=== PATIENT | female | born 1955 | race Caucasian/White ===

== ENCOUNTER 2019-12-21 17:38 | Inpatient (IN) | payer MEDICAID ==
[~2019-12-21] VITALS: Ht 157.5 cm; Wt 67.8 kg
[2019-12-21] MEDS ORDERED: GABA-531 PO (17:51)
[2019-12-21] MEDS ORDERED: TRAZ150 PO (17:51)
[2019-12-21] MEDS ORDERED: METF-960 PO (17:55)
[2019-12-21] MEDS ORDERED: INSLAN SQ (17:55)
[2019-12-21] MEDS ORDERED: PRAZ1 PO (17:55)
[2019-12-21] MEDS ORDERED: GLIP10 PO (17:55)
[2019-12-21] MEDS ORDERED: PANT40TA25 PO (17:55)
[2019-12-21] MEDS ORDERED: ARIP5TAB8 PO (17:55)
[2019-12-21] MEDS ORDERED: BICT1TAB PO (18:11)
[2019-12-21] MEDS: LORazepam 2 MG TABLET PO PRN (19:32)
[2019-12-21] MEDS ORDERED: GLUCAGON,HUMAN RECOMBINANT 1 MG VIAL IM PRN (20:45)
[2019-12-21] MEDS: PRAZOSIN HCL 1 MG CAPSULE PO SCH (21:58)
[2019-12-21] MEDS: INSULIN LISPRO 100 UNITS/ML SQ PRN (22:05)
[2019-12-21 22:06] LABS: GLUCOMETER DEV NAME(LOC) BV3N.; GLUCOSE,POINT OF CARE 260 MG/DL (70-110)
[2019-12-22 05:13] VITALS: BP 125/63
[2019-12-22] MEDS: MetFORMIN HCL 500 MG TABLET PO SCH ×2 (06:01→17:22)
[2019-12-22] MEDS: INSULIN GLARGINE,HUM.REC.ANLOG 100 UNITS/ML SQ SCH ×2 (06:02→09:45)
[2019-12-22 06:04] LABS: GLUCOMETER DEV NAME(LOC) BV3N.; GLUCOSE,POINT OF CARE 156 MG/DL (70-110)
[2019-12-22] MEDS: INSULIN LISPRO 100 UNITS/ML SQ PRN ×2 (06:04→12:18)
[2019-12-22] MEDS ORDERED: ONDANSETRON HCL 4 MG TABLET PO PRN (06:45)
[2019-12-22] MEDS ORDERED: BACITRACIN 28.4 GM OINTMENT TP PRN (06:45)
[2019-12-22] MEDS ORDERED: OMEPRAZOLE 20 MG CAPSULE PO PRN (06:45)
[2019-12-22] MEDS ORDERED: PETROLATUM,WHITE 28 GM JELLY TP PRN (06:45)
[2019-12-22] MEDS ORDERED: MAG HYDROX/AL HYDROX/SIMETH ES 30 ML SUSPENSION UDCUP PO PRN (06:45)
[2019-12-22] MEDS ORDERED: CloNIDine HCL 0.1 MG TABLET PO PRN (06:45)
[2019-12-22] MEDS ORDERED: ALBUTEROL SULFATE HFA 90 MCG/PUFF 8 GM INHALER IH PRN (06:45)
[2019-12-22] MEDS ORDERED: LOPERAMIDE HCL 2 MG CAPSULE PO PRN (06:45)
[2019-12-22] MEDS ORDERED: BENZOCAINE/MENTHOL LOZENGE MM PRN (06:45)
[2019-12-22] MEDS ORDERED: MAGNESIUM HYDROXIDE SUSPENSION 30 ML UDCUP PO PRN (06:45)
[2019-12-22] MEDS ORDERED: DOCUSATE SODIUM 100 MG CAPSULE PO PRN (06:45)
[2019-12-22 08:12] VITALS: BP 116/71
[2019-12-22] MEDS ORDERED: PANTOPRAZOLE SODIUM 40 MG/VIAL IVP SCH (09:00)
[2019-12-22] MEDS: PANTOPRAZOLE SODIUM 40 MG DR TABLET PO SCH (09:36)
[2019-12-22 12:31] LABS: GLUCOMETER DEV NAME(LOC) BV3N.; GLUCOSE,POINT OF CARE 189 MG/DL (70-110)
[2019-12-22] MEDS: GABAPENTIN 300 MG CAPSULE PO SCH ×3 (13:22→22:04)
[2019-12-22] MEDS: LORazepam 2 MG TABLET PO PRN (13:35)
[2019-12-22 16:07] VITALS: BP 118/68
[2019-12-22 17:04] LABS: GLUCOMETER DEV NAME(LOC) BV3N.; GLUCOSE,POINT OF CARE 108 MG/DL (70-110)
[2019-12-22 21:48] LABS: GLUCOMETER DEV NAME(LOC) BV3N.; GLUCOSE,POINT OF CARE 41 MG/DL (70-110)
[2019-12-22] MEDS: TraZODone HCL 50 MG TABLET PO SCH (22:04)
[2019-12-22] MEDS: PRAZOSIN HCL 1 MG CAPSULE PO SCH (22:04)
[2019-12-23 00:14] LABS: GLUCOMETER DEV NAME(LOC) BV3N.; GLUCOSE,POINT OF CARE 195 MG/DL (70-110)
[2019-12-23 03:46] VITALS: BP 115/72
[2019-12-23 06:40] LABS: GLUCOMETER DEV NAME(LOC) BV3N.; GLUCOSE,POINT OF CARE 183 MG/DL (70-110)
[2019-12-23] MEDS: MetFORMIN HCL 500 MG TABLET PO SCH ×2 (06:41→16:03)
[2019-12-23] MEDS: INSULIN LISPRO 100 UNITS/ML SQ PRN ×3 (06:45→20:14)
[2019-12-23 07:45] LABS: BASOPHILS % (AUTO) 0.4 % (0.0-2.0); EOSINOPHILS % (AUTO) 5.3 % (1.0-6.0); HEMATOCRIT 32.5 % (36-46); HEMOGLOBIN 10.7 g/dL (12.0-16.0); LYMPHOCYTES # (AUTO) 1.4 K/uL (1.0-4.8); LYMPHOCYTES % (AUTO) 27.7 % (22.0-44.0); MEAN CORPUSCULAR HGB CONC 32.8 G/dL (31.0-37.0); MEAN CORPUSCULAR VOLUME 89 fL (80-100); MONOCYTES # (AUTO) 0.3 K/uL (0.1-1.0); MONOCYTES % (AUTO) 6.7 % (2.0-9.0); NEUTROPHILS % (AUTO) 59.9 % (40.0-70.0); PLATELET COUNT (AUTO) 250 K/uL (150-450); RED BLOOD CELL COUNT(AUTO) 3.67 MIL/uL (4.00-5.20); RED CELL DISTRIBUTION WIDTH 15.4 % (11.5-14.5)
[2019-12-23 08:13] LABS: HEMOGLOBIN A1C 9.3 % (3.8-5.6)
[2019-12-23 08:21] LABS: ALANINE AMINOTRANSFERASE 15 U/L (12-78); ALBUMIN 2.8 g/dL (3.4-5.0); ALKALINE PHOSPHATASE 103 U/L (46-116); ANION GAP 9 mmol/L (8-16); ASPARTATE AMINOTRANSFERASE 8 U/L (15-37); BILIRUBIN,TOTAL 0.1 mg/dL (0.1-1.0); CALCIUM, TOTAL 8.9 mg/dL (8.8-10.5); CARBON DIOXIDE 23 mmol/L (22-29); CHLORIDE 103 mmol/L (98-107); CHOL/HDL RATIO 3.4 (3.9-5.7); CHOLESTEROL 141 mg/dL (131-200); CREATININE 0.72 mg/dL (0.60-1.30); FREE T4 (FREE THYROXINE) 1.22 ng/dL (0.76-1.46); GLOMERULAR FILTR. RATE CALC > 60 mL/min (>60); GLUCOSE,RANDOM 194 mg/dL (70-110); HDL CHOLESTEROL 42 mg/dL (40-60); LDL CHOL (CALC.) 58 mg/dL (0-130); POTASSIUM 3.4 mmol/L (3.5-5.1); SODIUM SERUM 135 mmol/L (136-145); THYROID STIMULATING HORMONE 0.49 uIU/mL (0.36-3.74); TRIGLYCERIDES 207 mg/dL (15-150); UREA NITROGEN, BLOOD 25 mg/dL (7-18)
[2019-12-23 08:27] VITALS: BP 121/68
[2019-12-23] MEDS: ARIPiprazole 15 MG TABLET PO SCH (09:06)
[2019-12-23] MEDS: PANTOPRAZOLE SODIUM 40 MG DR TABLET PO SCH (09:07)
[2019-12-23] MEDS: GABAPENTIN 300 MG CAPSULE PO SCH ×4 (09:07→20:02)
[2019-12-23] MEDS: INSULIN GLARGINE,HUM.REC.ANLOG 100 UNITS/ML SQ SCH (09:15)
[2019-12-23] MEDS ORDERED: POTASSIUM CHLORIDE 20 MEQ ER TABLET PO ONE (11:15)
[2019-12-23 11:45] LABS: GLUCOMETER DEV NAME(LOC) BV3N.; GLUCOSE,POINT OF CARE 211 MG/DL (70-110)
[2019-12-23] MEDS: LORazepam 2 MG TABLET PO PRN (12:14)
[2019-12-23 16:04] VITALS: BP 124/67
[2019-12-23 16:13] LABS: GLUCOMETER DEV NAME(LOC) BV3N.; GLUCOSE,POINT OF CARE 126 MG/DL (70-110)
[2019-12-23] MEDS ORDERED: GLUCAGON,HUMAN RECOMBINANT 1 MG VIAL ONE (16:45)
[2019-12-23] MEDS: TraZODone HCL 50 MG TABLET PO SCH (20:02)
[2019-12-23] MEDS: PRAZOSIN HCL 1 MG CAPSULE PO SCH (21:49)
[2019-12-24 06:32] LABS: GLUCOMETER DEV NAME(LOC) BV3N.; GLUCOSE,POINT OF CARE 158 MG/DL (70-110)
[2019-12-24 06:43] VITALS: BP 118/65
[2019-12-24] MEDS: MetFORMIN HCL 500 MG TABLET PO SCH ×2 (07:00→16:41)
[2019-12-24] MEDS: INSULIN LISPRO 100 UNITS/ML SQ PRN ×4 (07:01→20:26)
[2019-12-24 07:37] LABS: ANION GAP 10 mmol/L (8-16); CALCIUM, TOTAL 9.2 mg/dL (8.8-10.5); CARBON DIOXIDE 23 mmol/L (22-29); CHLORIDE 101 mmol/L (98-107); CREATININE 0.69 mg/dL (0.60-1.30); GLOMERULAR FILTR. RATE CALC > 60 mL/min (>60); GLUCOSE,RANDOM 148 mg/dL (70-110); POTASSIUM 3.8 mmol/L (3.5-5.1); SODIUM SERUM 134 mmol/L (136-145); UREA NITROGEN, BLOOD 24 mg/dL (7-18)
[2019-12-24] MEDS: GABAPENTIN 300 MG CAPSULE PO SCH ×4 (08:03→20:57)
[2019-12-24] MEDS: ARIPiprazole 15 MG TABLET PO SCH (08:03)
[2019-12-24] MEDS: PANTOPRAZOLE SODIUM 40 MG DR TABLET PO SCH (08:03)
[2019-12-24 08:16] VITALS: BP 135/74
[2019-12-24] MEDS: INSULIN GLARGINE,HUM.REC.ANLOG 100 UNITS/ML SQ SCH (09:07)
[2019-12-24 09:16] LABS: GLUCOMETER DEV NAME(LOC) BV3N.; GLUCOSE,POINT OF CARE 183 MG/DL (70-110)
[2019-12-24 11:08] LABS: GLUCOMETER DEV NAME(LOC) BV3N.; GLUCOSE,POINT OF CARE 203 MG/DL (70-110)
[2019-12-24] MEDS: LORazepam 2 MG TABLET PO PRN (12:08)
[2019-12-24 16:17] VITALS: BP 132/68
[2019-12-24] MEDS: IBUPROFEN 600 MG TABLET PO PRN (16:46)
[2019-12-24 16:47] VITALS: BP 134/75
[2019-12-24 16:55] LABS: GLUCOMETER DEV NAME(LOC) BV3N.; GLUCOSE,POINT OF CARE 143 MG/DL (70-110)
[2019-12-24] MEDS: TraZODone HCL 50 MG TABLET PO SCH (20:24)
[2019-12-24] MEDS: PRAZOSIN HCL 1 MG CAPSULE PO SCH (20:24)
[2019-12-24 20:36] LABS: GLUCOMETER DEV NAME(LOC) BV3N.; GLUCOSE,POINT OF CARE 192 MG/DL (70-110)
[2019-12-25 06:38] LABS: GLUCOMETER DEV NAME(LOC) BV3N.; GLUCOSE,POINT OF CARE 141 MG/DL (70-110)
[2019-12-25] MEDS: INSULIN LISPRO 100 UNITS/ML SQ PRN ×4 (06:39→20:30)
[2019-12-25 06:41] VITALS: BP 98/62
[2019-12-25] MEDS: MetFORMIN HCL 500 MG TABLET PO SCH ×2 (06:41→16:49)
[2019-12-25 08:32] VITALS: BP 116/55
[2019-12-25] MEDS: PANTOPRAZOLE SODIUM 40 MG DR TABLET PO SCH (08:58)
[2019-12-25] MEDS: GABAPENTIN 300 MG CAPSULE PO SCH ×4 (08:58→20:27)
[2019-12-25] MEDS: ARIPiprazole 15 MG TABLET PO SCH (08:58)
[2019-12-25] MEDS: INSULIN GLARGINE,HUM.REC.ANLOG 100 UNITS/ML SQ SCH (09:06)
[2019-12-25] MEDS: LORazepam 2 MG TABLET PO PRN ×2 (09:13→13:35)
[2019-12-25 11:40] LABS: GLUCOMETER DEV NAME(LOC) BV3N.; GLUCOSE,POINT OF CARE 286 MG/DL (70-110)
[2019-12-25 16:14] VITALS: BP 128/72
[2019-12-25 16:33] LABS: GLUCOMETER DEV NAME(LOC) BV3N.; GLUCOSE,POINT OF CARE 257 MG/DL (70-110)
[2019-12-25] MEDS: IBUPROFEN 600 MG TABLET PO PRN (17:30)
[2019-12-25] MEDS: HALOPERIDOL 5 MG TABLET PO PRN (17:30)
[2019-12-25 17:34] VITALS: BP 132/63
[2019-12-25] MEDS: TraZODone HCL 50 MG TABLET PO SCH (20:28)
[2019-12-25] MEDS: PRAZOSIN HCL 1 MG CAPSULE PO SCH (20:28)
[2019-12-25 20:40] LABS: GLUCOMETER DEV NAME(LOC) BV3N.; GLUCOSE,POINT OF CARE 149 MG/DL (70-110)
[2019-12-25] MEDS: ZOLPIDEM TARTRATE 10 MG TABLET PO PRN (21:16)
[2019-12-26 01:33] VITALS: BP 106/53
[2019-12-26] MEDS: INFLUENZA VIRUS VACCINE QVS 2019-20 (3YR+)/PF 60 MCG/0.5 ML SYRINGE IM ONE ×2 (03:49→14:38)
[2019-12-26] MEDS: PNEUMOCOCCAL VACCINE POLYVALENT 0.5 ML VIAL [PPSV23] IM ONE ×2 (03:49→14:39)
[2019-12-26 06:04] LABS: GLUCOMETER DEV NAME(LOC) BV3N.; GLUCOSE,POINT OF CARE 146 MG/DL (70-110)
[2019-12-26] MEDS: MetFORMIN HCL 500 MG TABLET PO SCH ×2 (07:00→16:53)
[2019-12-26] MEDS: INSULIN LISPRO 100 UNITS/ML SQ PRN ×4 (07:01→21:03)
[2019-12-26 08:15] VITALS: BP 114/56
[2019-12-26] MEDS: PANTOPRAZOLE SODIUM 40 MG DR TABLET PO SCH (09:07)
[2019-12-26] MEDS: GABAPENTIN 300 MG CAPSULE PO SCH ×4 (09:07→20:25)
[2019-12-26] MEDS: ARIPiprazole 15 MG TABLET PO SCH (09:07)
[2019-12-26] MEDS: INSULIN GLARGINE,HUM.REC.ANLOG 100 UNITS/ML SQ SCH (09:14)
[2019-12-26] MEDS: LORazepam 2 MG TABLET PO PRN ×2 (09:19→18:39)
[2019-12-26 11:11] LABS: GLUCOMETER DEV NAME(LOC) BV3N.; GLUCOSE,POINT OF CARE 244 MG/DL (70-110)
[2019-12-26 16:05] VITALS: BP 109/64
[2019-12-26 16:38] LABS: GLUCOMETER DEV NAME(LOC) BV3N.; GLUCOSE,POINT OF CARE 348 MG/DL (70-110)
[2019-12-26] MEDS: HALOPERIDOL 5 MG TABLET PO PRN (16:53)
[2019-12-26] MEDS: PRAZOSIN HCL 1 MG CAPSULE PO SCH (20:25)
[2019-12-26] MEDS: TraZODone HCL 50 MG TABLET PO SCH (20:25)
[2019-12-26] MEDS: ZOLPIDEM TARTRATE 10 MG TABLET PO PRN (20:26)
[2019-12-26 21:05] LABS: GLUCOMETER DEV NAME(LOC) BV3N.; GLUCOSE,POINT OF CARE 205 MG/DL (70-110)
[2019-12-27 05:53] VITALS: BP 101/62
[2019-12-27 06:20] LABS: GLUCOMETER DEV NAME(LOC) BV3N.; GLUCOSE,POINT OF CARE 140 MG/DL (70-110)
[2019-12-27] MEDS: MetFORMIN HCL 500 MG TABLET PO SCH ×2 (06:48→16:41)
[2019-12-27 08:17] VITALS: BP 120/58
[2019-12-27] MEDS: GABAPENTIN 300 MG CAPSULE PO SCH ×4 (09:24→20:32)
[2019-12-27] MEDS: ARIPiprazole 15 MG TABLET PO SCH (09:24)
[2019-12-27] MEDS: PANTOPRAZOLE SODIUM 40 MG DR TABLET PO SCH (09:24)
[2019-12-27] MEDS: INSULIN GLARGINE,HUM.REC.ANLOG 100 UNITS/ML SQ SCH (09:26)
[2019-12-27] MEDS: LORazepam 2 MG TABLET PO PRN (09:32)
[2019-12-27] MEDS: INSULIN LISPRO 100 UNITS/ML SQ PRN ×3 (11:55→20:33)
[2019-12-27 12:19] LABS: GLUCOMETER DEV NAME(LOC) BV3N.; GLUCOSE,POINT OF CARE 273 MG/DL (70-110)
[2019-12-27 16:29] VITALS: BP 112/67
[2019-12-27] MEDS: ACETAMINOPHEN 325 MG TABLET PO PRN (16:42)
[2019-12-27 16:56] LABS: GLUCOMETER DEV NAME(LOC) BV3N.; GLUCOSE,POINT OF CARE 284 MG/DL (70-110)
[2019-12-27] MEDS: TraZODone HCL 50 MG TABLET PO SCH (20:32)
[2019-12-27] MEDS: PRAZOSIN HCL 1 MG CAPSULE PO SCH (20:32)
[2019-12-27 20:39] VITALS: BP 128/66
[2019-12-27 20:41] LABS: GLUCOMETER DEV NAME(LOC) BV3N.; GLUCOSE,POINT OF CARE 203 MG/DL (70-110)
[2019-12-28] MEDS: HALOPERIDOL 5 MG TABLET PO PRN ×2 (01:37→21:02)
[2019-12-28] MEDS: LORazepam 2 MG TABLET PO PRN ×3 (01:37→21:02)
[2019-12-28 01:39] VITALS: BP 134/61
[2019-12-28] MEDS: MetFORMIN HCL 500 MG TABLET PO SCH ×2 (06:08→16:15)
[2019-12-28] MEDS: INSULIN LISPRO 100 UNITS/ML SQ PRN ×4 (06:14→21:10)
[2019-12-28 06:18] LABS: GLUCOMETER DEV NAME(LOC) BV3N.; GLUCOSE,POINT OF CARE 159 MG/DL (70-110)
[2019-12-28 08:18] VITALS: BP 129/65
[2019-12-28] MEDS: ARIPiprazole 15 MG TABLET PO SCH (08:52)
[2019-12-28] MEDS: PANTOPRAZOLE SODIUM 40 MG DR TABLET PO SCH (08:53)
[2019-12-28] MEDS: GABAPENTIN 300 MG CAPSULE PO SCH ×4 (08:53→20:13)
[2019-12-28] MEDS: INSULIN GLARGINE,HUM.REC.ANLOG 100 UNITS/ML SQ SCH (08:58)
[2019-12-28] MEDS: IBUPROFEN 600 MG TABLET PO PRN (10:07)
[2019-12-28 12:04] LABS: GLUCOMETER DEV NAME(LOC) BV3N.; GLUCOSE,POINT OF CARE 290 MG/DL (70-110)
[2019-12-28 16:24] LABS: GLUCOMETER DEV NAME(LOC) BV3N.; GLUCOSE,POINT OF CARE 249 MG/DL (70-110)
[2019-12-28 16:34] VITALS: BP 118/72
[2019-12-28] MEDS: TraZODone HCL 50 MG TABLET PO SCH (20:13)
[2019-12-28 20:28] LABS: GLUCOMETER DEV NAME(LOC) BV3N.; GLUCOSE,POINT OF CARE 296 MG/DL (70-110)
[2019-12-28] MEDS: PRAZOSIN HCL 1 MG CAPSULE PO SCH (21:00)
[2019-12-29] MEDS: ZOLPIDEM TARTRATE 10 MG TABLET PO PRN ×2 (01:35→20:59)
[2019-12-29 02:13] VITALS: BP 124/58
[2019-12-29] MEDS: MetFORMIN HCL 500 MG TABLET PO SCH ×2 (06:19→16:21)
[2019-12-29] MEDS: INSULIN LISPRO 100 UNITS/ML SQ PRN ×4 (06:24→20:33)
[2019-12-29 06:35] LABS: GLUCOMETER DEV NAME(LOC) BV3N.; GLUCOSE,POINT OF CARE 241 MG/DL (70-110)
[2019-12-29 08:14] VITALS: BP 127/64
[2019-12-29] MEDS: ARIPiprazole 15 MG TABLET PO SCH (08:47)
[2019-12-29] MEDS: PANTOPRAZOLE SODIUM 40 MG DR TABLET PO SCH (08:47)
[2019-12-29] MEDS: GABAPENTIN 300 MG CAPSULE PO SCH ×4 (08:48→20:59)
[2019-12-29] MEDS: INSULIN GLARGINE,HUM.REC.ANLOG 100 UNITS/ML SQ SCH (08:50)
[2019-12-29] MEDS: IBUPROFEN 600 MG TABLET PO PRN (10:57)
[2019-12-29] MEDS: LORazepam 2 MG TABLET PO PRN ×2 (10:57→22:47)
[2019-12-29 11:53] LABS: GLUCOMETER DEV NAME(LOC) BV3N.; GLUCOSE,POINT OF CARE 305 MG/DL (70-110)
[2019-12-29] MEDS ORDERED: DEXTROSE 50%-WATER 25 GM/50 ML SYRINGE IVP PRN (13:00)
[2019-12-29] MEDS ORDERED: INSULIN LISPRO 100 UNITS/ML SQ PRN (13:00)
[2019-12-29] MEDS ORDERED: GLUCAGON,HUMAN RECOMBINANT 1 MG VIAL IM PRN (13:00)
[2019-12-29 16:43] VITALS: BP 135/61
[2019-12-29 17:47] LABS: GLUCOMETER DEV NAME(LOC) BV3N.; GLUCOSE,POINT OF CARE 199 MG/DL (70-110)
[2019-12-29 20:34] LABS: GLUCOMETER DEV NAME(LOC) BV3N.; GLUCOSE,POINT OF CARE 217 MG/DL (70-110)
[2019-12-29] MEDS: PRAZOSIN HCL 1 MG CAPSULE PO SCH (20:59)
[2019-12-29] MEDS: TraZODone HCL 50 MG TABLET PO SCH (20:59)
[2019-12-30] MEDS: LORazepam 2 MG TABLET PO PRN ×3 (04:30→16:22)
[2019-12-30 04:57] VITALS: BP 127/60
[2019-12-30 06:27] LABS: GLUCOMETER DEV NAME(LOC) BV3N.; GLUCOSE,POINT OF CARE 141 MG/DL (70-110)
[2019-12-30] MEDS: MetFORMIN HCL 500 MG TABLET PO SCH ×2 (06:32→16:53)
[2019-12-30] MEDS: INSULIN LISPRO 100 UNITS/ML SQ PRN ×4 (06:34→21:10)
[2019-12-30] MEDS: PANTOPRAZOLE SODIUM 40 MG DR TABLET PO SCH (08:11)
[2019-12-30] MEDS: ARIPiprazole 15 MG TABLET PO SCH (08:11)
[2019-12-30] MEDS: GABAPENTIN 300 MG CAPSULE PO SCH ×4 (08:11→21:08)
[2019-12-30 08:19] VITALS: BP 121/57
[2019-12-30] MEDS: INSULIN GLARGINE,HUM.REC.ANLOG 100 UNITS/ML SQ SCH (08:59)
[2019-12-30] MEDS: IBUPROFEN 600 MG TABLET PO PRN ×2 (09:08→18:01)
[2019-12-30 09:09] LABS: GLUCOMETER DEV NAME(LOC) BV3N.; GLUCOSE,POINT OF CARE 314 MG/DL (70-110)
[2019-12-30 11:24] LABS: GLUCOMETER DEV NAME(LOC) BV3N.; GLUCOSE,POINT OF CARE 199 MG/DL (70-110)
[2019-12-30] MEDS: HALOPERIDOL 5 MG TABLET PO PRN ×2 (14:33→19:04)
[2019-12-30 16:09] VITALS: BP 125/73
[2019-12-30 16:47] LABS: GLUCOMETER DEV NAME(LOC) BV3N.; GLUCOSE,POINT OF CARE 230 MG/DL (70-110)
[2019-12-30] MEDS ORDERED: TRAZ-252 PO (18:09)
[2019-12-30 21:02] LABS: GLUCOMETER DEV NAME(LOC) BV3N.; GLUCOSE,POINT OF CARE 148 MG/DL (70-110)
[2019-12-30] MEDS: PRAZOSIN HCL 1 MG CAPSULE PO SCH (21:07)
[2019-12-30] MEDS: ZOLPIDEM TARTRATE 10 MG TABLET PO PRN (21:08)
[2019-12-30] MEDS: TraZODone HCL 50 MG TABLET PO SCH (21:08)
[2019-12-31 05:16] VITALS: BP 120/68
[2019-12-31 06:30] LABS: GLUCOMETER DEV NAME(LOC) BV3N.; GLUCOSE,POINT OF CARE 155 MG/DL (70-110)
[2019-12-31] MEDS: MetFORMIN HCL 500 MG TABLET PO SCH ×2 (06:34→16:14)
[2019-12-31] MEDS: INSULIN LISPRO 100 UNITS/ML SQ PRN ×3 (06:36→20:44)
[2019-12-31 08:09] VITALS: BP 120/66
[2019-12-31] MEDS: PANTOPRAZOLE SODIUM 40 MG DR TABLET PO SCH (09:00)
[2019-12-31] MEDS: ARIPiprazole 15 MG TABLET PO SCH (09:00)
[2019-12-31] MEDS: LORazepam 2 MG TABLET PO PRN ×2 (09:01→16:13)
[2019-12-31] MEDS: PHENAZOPYRIDINE HCL 100 MG TABLET PO SCH ×3 (09:01→16:14)
[2019-12-31] MEDS: GABAPENTIN 300 MG CAPSULE PO SCH ×4 (09:01→21:05)
[2019-12-31] MEDS: INSULIN GLARGINE,HUM.REC.ANLOG 100 UNITS/ML SQ SCH (09:08)
[2019-12-31 11:53] LABS: GLUCOMETER DEV NAME(LOC) BV3N.; GLUCOSE,POINT OF CARE 406 MG/DL (70-110)
[2019-12-31] MEDS ORDERED: INSULIN LISPRO 100 UNITS/ML SQ ONE (12:30)
[2019-12-31 14:18] LABS: GLUCOMETER DEV NAME(LOC) BV3N.; GLUCOSE,POINT OF CARE 259 MG/DL (70-110)
[2019-12-31] MEDS: HALOPERIDOL 5 MG TABLET PO PRN (16:12)
[2019-12-31 16:19] VITALS: BP 136/60
[2019-12-31 16:33] LABS: GLUCOMETER DEV NAME(LOC) BV3N.; GLUCOSE,POINT OF CARE 203 MG/DL (70-110)
[2019-12-31] MEDS: TraZODone HCL 50 MG TABLET PO SCH (21:05)
[2019-12-31] MEDS: PRAZOSIN HCL 1 MG CAPSULE PO SCH (21:05)
[2019-12-31 23:11] LABS: GLUCOMETER DEV NAME(LOC) BV3N.; GLUCOSE,POINT OF CARE 178 MG/DL (70-110)
[2020-01-01 02:05] VITALS: BP 116/76
[2020-01-01] MEDS: LORazepam 2 MG TABLET PO PRN ×3 (02:09→16:00)
[2020-01-01] MEDS: IBUPROFEN 600 MG TABLET PO PRN ×2 (02:09→10:26)
[2020-01-01] MEDS: MetFORMIN HCL 500 MG TABLET PO SCH ×2 (06:24→16:00)
[2020-01-01] MEDS: INSULIN LISPRO 100 UNITS/ML SQ PRN ×4 (06:26→20:20)
[2020-01-01 06:30] LABS: GLUCOMETER DEV NAME(LOC) BV3N.; GLUCOSE,POINT OF CARE 186 MG/DL (70-110)
[2020-01-01] MEDS: GABAPENTIN 300 MG CAPSULE PO SCH ×4 (08:07→20:14)
[2020-01-01] MEDS: ARIPiprazole 15 MG TABLET PO SCH (08:07)
[2020-01-01] MEDS: PANTOPRAZOLE SODIUM 40 MG DR TABLET PO SCH (08:07)
[2020-01-01 08:12] VITALS: BP 152/76
[2020-01-01] MEDS: PHENAZOPYRIDINE HCL 100 MG TABLET PO SCH ×3 (08:14→16:00)
[2020-01-01] MEDS: INSULIN GLARGINE,HUM.REC.ANLOG 100 UNITS/ML SQ SCH (08:54)
[2020-01-01 09:11] LABS: APPEARANCE,URINE CLEAR (CLEAR); BILIRUBIN,URINE NEGATIVE (NEGATIVE); GLUCOSE, URINE (UA) >=1000 mg/dL (NEGATIVE); KETONES,URINE NEGATIVE (NEGATIVE); LEUKOCYTE ESTERASE ,URINE NEGATIVE (NEGATIVE); NITRATE,URINE NEGATIVE (NEGATIVE); OCCULT BLOOD,URINE NEGATIVE (NEGATIVE); PROTEIN,URINE NEGATIVE (NEGATIVE); UROBILINOGEN,URINE 0.2 mg/dL (<=1.0)
[2020-01-01 10:02] LABS: BACTERIA,URINE Moderate /HPF (None Seen); RBC,URINE None Seen /HPF (0-2); SQUAMOUS EPITHELIAL CELL,UR Rare /LPF (None Seen); WBC,URINE 0-2 /HPF (0-5)
[2020-01-01 10:26] VITALS: BP 138/74
[2020-01-01] MEDS: HALOPERIDOL 5 MG TABLET PO PRN (10:29)
[2020-01-01 11:51] LABS: GLUCOMETER DEV NAME(LOC) BV3N.; GLUCOSE,POINT OF CARE 340 MG/DL (70-110)
[2020-01-01 16:08] LABS: GLUCOMETER DEV NAME(LOC) BV3N.; GLUCOSE,POINT OF CARE 143 MG/DL (70-110)
[2020-01-01 16:16] VITALS: BP 133/70
[2020-01-01 20:11] LABS: GLUCOMETER DEV NAME(LOC) BV3N.; GLUCOSE,POINT OF CARE 157 MG/DL (70-110)
[2020-01-01] MEDS: PRAZOSIN HCL 1 MG CAPSULE PO SCH (20:14)
[2020-01-01] MEDS: ZOLPIDEM TARTRATE 10 MG TABLET PO PRN (20:14)
[2020-01-01] MEDS: TraZODone HCL 50 MG TABLET PO SCH (20:14)
[2020-01-02] MEDS: IBUPROFEN 600 MG TABLET PO PRN ×2 (00:24→16:25)
[2020-01-02] MEDS: LORazepam 2 MG TABLET PO PRN ×3 (00:24→16:25)
[2020-01-02 00:26] VITALS: BP 111/60
[2020-01-02] MEDS: HALOPERIDOL 5 MG TABLET PO PRN ×2 (03:56→21:10)
[2020-01-02 06:19] LABS: GLUCOMETER DEV NAME(LOC) BV3N.; GLUCOSE,POINT OF CARE 141 MG/DL (70-110)
[2020-01-02] MEDS: MetFORMIN HCL 500 MG TABLET PO SCH ×2 (06:25→16:24)
[2020-01-02] MEDS: INSULIN LISPRO 100 UNITS/ML SQ PRN ×3 (06:28→17:18)
[2020-01-02 08:19] VITALS: BP 136/74
[2020-01-02] MEDS: PANTOPRAZOLE SODIUM 40 MG DR TABLET PO SCH (08:46)
[2020-01-02] MEDS: ARIPiprazole 15 MG TABLET PO SCH (08:46)
[2020-01-02] MEDS: PHENAZOPYRIDINE HCL 100 MG TABLET PO SCH ×3 (08:49→16:25)
[2020-01-02] MEDS: GABAPENTIN 300 MG CAPSULE PO SCH ×4 (08:49→20:52)
[2020-01-02] MEDS: INSULIN GLARGINE,HUM.REC.ANLOG 100 UNITS/ML SQ SCH (08:56)
[2020-01-02 11:12] LABS: GLUCOMETER DEV NAME(LOC) BV3N.; GLUCOSE,POINT OF CARE 197 MG/DL (70-110)
[2020-01-02 16:05] VITALS: BP 141/73
[2020-01-02 17:24] LABS: GLUCOMETER DEV NAME(LOC) BV3N.; GLUCOSE,POINT OF CARE 236 MG/DL (70-110)
[2020-01-02 17:25] VITALS: BP 134/76
[2020-01-02 20:30] LABS: GLUCOMETER DEV NAME(LOC) BV3N.; GLUCOSE,POINT OF CARE 112 MG/DL (70-110)
[2020-01-02] MEDS: PRAZOSIN HCL 1 MG CAPSULE PO SCH (20:52)
[2020-01-02] MEDS: TraZODone HCL 50 MG TABLET PO SCH (20:52)
[2020-01-02] MEDS: ZOLPIDEM TARTRATE 10 MG TABLET PO PRN (21:10)
[2020-01-03 04:21] VITALS: BP 125/76
[2020-01-03] MEDS: IBUPROFEN 600 MG TABLET PO PRN (04:23)
[2020-01-03] MEDS: LORazepam 2 MG TABLET PO PRN ×2 (04:23→15:55)
[2020-01-03 06:20] LABS: GLUCOMETER DEV NAME(LOC) BV3N.; GLUCOSE,POINT OF CARE 151 MG/DL (70-110)
[2020-01-03] MEDS: MetFORMIN HCL 500 MG TABLET PO SCH ×2 (06:59→16:33)
[2020-01-03] MEDS: INSULIN LISPRO 100 UNITS/ML SQ PRN ×3 (07:01→20:32)
[2020-01-03 08:03] VITALS: BP 123/68
[2020-01-03] MEDS: PANTOPRAZOLE SODIUM 40 MG DR TABLET PO SCH (08:30)
[2020-01-03] MEDS: ARIPiprazole 15 MG TABLET PO SCH (08:30)
[2020-01-03] MEDS: GABAPENTIN 300 MG CAPSULE PO SCH ×4 (08:30→20:30)
[2020-01-03] MEDS: INSULIN GLARGINE,HUM.REC.ANLOG 100 UNITS/ML SQ SCH (08:54)
[2020-01-03 09:11] LABS: GLUCOMETER DEV NAME(LOC) BV3N.; GLUCOSE,POINT OF CARE 200 MG/DL (70-110)
[2020-01-03] MEDS: HALOPERIDOL 5 MG TABLET PO PRN ×2 (09:17→17:43)
[2020-01-03 09:18] VITALS: BP 121/71
[2020-01-03] MEDS: ACETAMINOPHEN 325 MG TABLET PO PRN (09:18)
[2020-01-03 12:22] LABS: GLUCOMETER DEV NAME(LOC) BV3N.; GLUCOSE,POINT OF CARE 164 MG/DL (70-110)
[2020-01-03 16:09] VITALS: BP 142/57
[2020-01-03 17:01] LABS: GLUCOMETER DEV NAME(LOC) BV3N.; GLUCOSE,POINT OF CARE 240 MG/DL (70-110)
[2020-01-03] MEDS: TraZODone HCL 50 MG TABLET PO SCH (20:30)
[2020-01-03] MEDS: ZOLPIDEM TARTRATE 10 MG TABLET PO PRN (20:30)
[2020-01-03] MEDS: PRAZOSIN HCL 1 MG CAPSULE PO SCH (20:30)
[2020-01-03 23:10] LABS: GLUCOMETER DEV NAME(LOC) BV3N.; GLUCOSE,POINT OF CARE 229 MG/DL (70-110)
[2020-01-04] MEDS: LORazepam 2 MG TABLET PO PRN ×3 (01:13→16:00)
[2020-01-04] MEDS: IBUPROFEN 600 MG TABLET PO PRN ×3 (01:14→18:25)
[2020-01-04 03:42] VITALS: BP 108/65
[2020-01-04 06:10] LABS: GLUCOMETER DEV NAME(LOC) BV3N.; GLUCOSE,POINT OF CARE 114 MG/DL (70-110)
[2020-01-04] MEDS: MetFORMIN HCL 500 MG TABLET PO SCH ×2 (06:35→16:00)
[2020-01-04 08:38] VITALS: BP 124/63
[2020-01-04] MEDS: ARIPiprazole 15 MG TABLET PO SCH (08:49)
[2020-01-04] MEDS: GABAPENTIN 300 MG CAPSULE PO SCH ×4 (08:49→20:04)
[2020-01-04] MEDS: PANTOPRAZOLE SODIUM 40 MG DR TABLET PO SCH (08:50)
[2020-01-04] MEDS: INSULIN GLARGINE,HUM.REC.ANLOG 100 UNITS/ML SQ SCH (08:53)
[2020-01-04] MEDS: INSULIN LISPRO 100 UNITS/ML SQ PRN ×3 (11:45→20:11)
[2020-01-04 12:00] LABS: GLUCOMETER DEV NAME(LOC) BV3N.; GLUCOSE,POINT OF CARE 215 MG/DL (70-110)
[2020-01-04 16:08] LABS: GLUCOMETER DEV NAME(LOC) BV3N.; GLUCOSE,POINT OF CARE 186 MG/DL (70-110)
[2020-01-04 16:15] VITALS: BP 148/69
[2020-01-04] MEDS: HALOPERIDOL 5 MG TABLET PO PRN (17:16)
[2020-01-04 18:26] VITALS: BP 141/71
[2020-01-04] MEDS: TraZODone HCL 50 MG TABLET PO SCH (20:04)
[2020-01-04] MEDS: PRAZOSIN HCL 1 MG CAPSULE PO SCH (20:04)
[2020-01-04 20:13] LABS: GLUCOMETER DEV NAME(LOC) BV3N.; GLUCOSE,POINT OF CARE 174 MG/DL (70-110)
[2020-01-05 00:22] VITALS: BP 136/70
[2020-01-05] MEDS: ACETAMINOPHEN 325 MG TABLET PO PRN (00:24)
[2020-01-05 03:10] VITALS: BP 104/66
[2020-01-05 06:53] LABS: GLUCOMETER DEV NAME(LOC) BV3N.; GLUCOSE,POINT OF CARE 195 MG/DL (70-110)
[2020-01-05] MEDS: INSULIN LISPRO 100 UNITS/ML SQ PRN ×2 (07:06→11:38)
[2020-01-05] MEDS: MetFORMIN HCL 500 MG TABLET PO SCH (07:14)
[2020-01-05 07:20] VITALS: BP 110/68
[2020-01-05] MEDS: IBUPROFEN 600 MG TABLET PO PRN (07:22)
[2020-01-05 08:14] VITALS: BP 129/60
[2020-01-05] MEDS: PANTOPRAZOLE SODIUM 40 MG DR TABLET PO SCH (08:21)
[2020-01-05] MEDS: GABAPENTIN 300 MG CAPSULE PO SCH ×2 (08:21→12:42)
[2020-01-05] MEDS: ARIPiprazole 15 MG TABLET PO SCH (08:21)
[2020-01-05] MEDS ORDERED: ARIP15TA2 PO (08:22)
[2020-01-05] MEDS ORDERED: CIPROFLOXACIN HCL 250 MG TABLET PO SCH (09:00)
[2020-01-05] MEDS: INSULIN GLARGINE,HUM.REC.ANLOG 100 UNITS/ML SQ SCH (09:17)
[2020-01-05] MEDS: LORazepam 2 MG TABLET PO PRN (10:26)
[2020-01-05] MEDS: HALOPERIDOL 5 MG TABLET PO PRN (10:27)
[2020-01-05 10:53] LABS: GLUCOMETER DEV NAME(LOC) BV3N.; GLUCOSE,POINT OF CARE 276 MG/DL (70-110)
[2020-01-06] MEDS ORDERED: BICT1TAB PO (11:38)
== END 2020-01-05 13:00 | disposition home or self-care (01) | DRG 750 ==
LOC: B2S 18:20 → B3A 18:25
PROVIDERS: ADMIT Psychiatry & Neurology Psychiatry; ATTEND Psychiatry & Neurology Psychiatry
DX: F25.9 Schizoaffective disorder, unspecified (principal); E11.65 Type 2 diabetes mellitus with hyperglycemia; F41.9 Anxiety disorder, unspecified; K21.9 Gastro-esophageal reflux disease without esophagitis; Z28.21 Immunization not carried out because of patient refusal
CPT/HCPCS: 83036; 84439; 84443; 87081; 87086; 90686; 90732; J1610; J1815

== ENCOUNTER 2020-01-06 11:22 | Emergency (ER) | payer MEDICAID ==
[~2020-01-06] VITALS: Ht 157.5 cm; Wt 65.9 kg
[~2020-01-06 11:22] MED LIST: ARIP15TA2 PO; GABA-531 PO; INSLAN SQ; METF-960 PO; PANT40TA25 PO; PRAZ1 PO; TRAZ-252 PO
[2020-01-06] MEDS ORDERED: BICT1TAB PO (11:38)
[2020-01-06 12:47] LABS: GLUCOSE,POINT OF CARE 215 MG/DL (70-110)
[2020-01-06 12:54] LABS: APPEARANCE,URINE CLEAR (CLEAR); BILIRUBIN,URINE NEGATIVE (NEGATIVE); GLUCOSE, URINE (UA) NEGATIVE (NEGATIVE); KETONES,URINE NEGATIVE (NEGATIVE); LEUKOCYTE ESTERASE ,URINE SMALL (NEGATIVE); NITRATE,URINE NEGATIVE (NEGATIVE); OCCULT BLOOD,URINE NEGATIVE (NEGATIVE); PH,URINE 6.5 (5.0-8.0); PROTEIN,URINE TRACE (NEGATIVE); UROBILINOGEN,URINE 0.2 mg/dL (<=1.0)
[2020-01-06 13:00] LABS: BASOPHILS % (AUTO) 0.6 % (0.0-2.0); EOSINOPHILS % (AUTO) 2.2 % (1.0-6.0); HEMATOCRIT 34.7 % (36-46); HEMOGLOBIN 11.4 g/dL (12.0-16.0); LYMPHOCYTES # (AUTO) 0.8 K/uL (1.0-4.8); LYMPHOCYTES % (AUTO) 17.8 % (22.0-44.0); MEAN CORPUSCULAR HEMOGLOBIN 29.1 pg (26.0-34.0); MEAN CORPUSCULAR HGB CONC 32.9 G/dL (31.0-37.0); MEAN CORPUSCULAR VOLUME 89 fL (80-100); MONOCYTES # (AUTO) 0.3 K/uL (0.1-1.0); NEUTROPHILS # (AUTO) 3.4 K/uL (1.8-7.7); NEUTROPHILS % (AUTO) 73.4 % (40.0-70.0); PLATELET COUNT (AUTO) 271 K/uL (150-450); RED BLOOD CELL COUNT(AUTO) 3.92 MIL/uL (4.00-5.20); RED CELL DISTRIBUTION WIDTH 14.9 % (11.5-14.5)
[2020-01-06 13:01] LABS: BACTERIA,URINE None Seen /HPF (None Seen); RBC,URINE None Seen /HPF (0-2); SQUAMOUS EPITHELIAL CELL,UR Few /LPF (None Seen)
[2020-01-06 13:13] LABS: ANION GAP 8 mmol/L (8-16); CALCIUM, TOTAL 9.3 mg/dL (8.8-10.5); CARBON DIOXIDE 28 mmol/L (22-29); CHLORIDE 101 mmol/L (98-107); CREATININE 0.92 mg/dL (0.60-1.30); GLOMERULAR FILTR. RATE CALC > 60 mL/min (>60); GLUCOSE,RANDOM 224 mg/dL (70-110); POTASSIUM 3.7 mmol/L (3.5-5.1); SODIUM SERUM 137 mmol/L (136-145); UREA NITROGEN, BLOOD 19 mg/dL (7-18)
[2020-01-06 13:25] LABS: ALANINE AMINOTRANSFERASE 19 U/L (12-78); ALBUMIN 3.5 g/dL (3.4-5.0); ALKALINE PHOSPHATASE 121 U/L (46-116); ASPARTATE AMINOTRANSFERASE 13 U/L (15-37); BILIRUBIN,TOTAL 0.1 mg/dL (0.1-1.0); LIPASE 200 U/L (73-393); TOTAL PROTEIN, SERUM 8.2 g/dL (6.4-8.2)
[2020-01-06 13:37] VITALS: BP 122/70
[2020-01-06] MEDS ORDERED: IOVERSOL 320 MG/ML 100 ML VIAL ONE (14:08)
[2020-01-06] MEDS ORDERED: SODIUM CHLORIDE 0.9% 0 ML ONE (14:08)
== END 2020-01-06 15:00 | disposition left against medical advice (07) ==
LOC: EMS 11:23
DX: R10.33 Periumbilical pain (principal); R11.10 Vomiting, unspecified; J44.9 Chronic obstructive pulmonary disease, unspecified; E11.9 Type 2 diabetes mellitus without complications; F17.210 Nicotine dependence, cigarettes, uncomplicated; Z79.84 Long term (current) use of oral hypoglycemic drugs; Z79.4 Long term (current) use of insulin; Z59.0 Homelessness
CPT/HCPCS: 87086; 93005; J7050

== ENCOUNTER 2021-09-26 16:34 | Emergency (ER) | payer MEDICARE, MEDICAID ==
[~2021-09-26] VITALS: Ht 157.5 cm; Wt 56.4 kg
[~2021-09-26 16:34] MED LIST changes: -ARIP15TA2 PO; +ARIP15TA27 PO; +BICT1TAB PO; +GABA-1181 PO; -GABA-531 PO; +METF-1211 PO; -METF-960 PO; +PANT-31 PO; -PANT40TA25 PO
[2021-09-26] MEDS ORDERED: SODIUM CHLORIDE 0.9% 1,000 ML IV ONE ×2 (17:45→19:15)
[2021-09-26] MEDS ORDERED: INSULIN REGULAR, HUMAN 100 UNITS/ML IVP ONE (17:45)
[2021-09-26 17:49] LABS: GLUCOMETER DEV NAME(LOC) ERT.5; GLUCOSE,POINT OF CARE 535 MG/DL (70-110)
[2021-09-26 18:42] LABS: BASOPHILS % (AUTO) 0.9 % (0.0-2.0); EOSINOPHILS % (AUTO) 5.4 % (1.0-6.0); HEMATOCRIT 31.9 % (36-46); HEMOGLOBIN 10.9 g/dL (12.0-16.0); LYMPHOCYTES % (AUTO) 11.9 % (22.0-44.0); MEAN CORPUSCULAR HEMOGLOBIN 32.5 pg (26.0-34.0); MEAN CORPUSCULAR HGB CONC 34.1 G/dL (31.0-37.0); MEAN CORPUSCULAR VOLUME 95 fL (80-100); MONOCYTES # (AUTO) 0.4 K/uL (0.1-1.0); MONOCYTES % (AUTO) 5.1 % (2.0-9.0); NEUTROPHILS # (AUTO) 6.2 K/uL (1.8-7.7); NEUTROPHILS % (AUTO) 76.7 % (40.0-70.0); PLATELET COUNT (AUTO) 423 K/uL (150-450); RED BLOOD CELL COUNT(AUTO) 3.34 MIL/uL (4.00-5.20); RED CELL DISTRIBUTION WIDTH 12.7 % (11.5-14.5)
[2021-09-26 18:52] LABS: ALANINE AMINOTRANSFERASE 14 U/L (12-78); ALKALINE PHOSPHATASE 183 U/L (46-116); ANION GAP 8 mmol/L (8-16); ASPARTATE AMINOTRANSFERASE 13 U/L (15-37); BILIRUBIN,TOTAL 0.3 mg/dL (0.1-1.0); CALCIUM, TOTAL 9.5 mg/dL (8.8-10.5); CARBON DIOXIDE 26 mmol/L (22-29); CHLORIDE 93 mmol/L (98-107); CREATININE 1.42 mg/dL (0.60-1.30); GLOMERULAR FILTR. RATE CALC 37 mL/min (>60); POTASSIUM 3.4 mmol/L (3.5-5.1); SODIUM SERUM 127 mmol/L (136-145); TOTAL PROTEIN, SERUM 8.2 g/dL (6.4-8.2); UREA NITROGEN, BLOOD 28 mg/dL (7-18)
[2021-09-26 18:53] LABS: GLUCOSE,RANDOM 540 mg/dL (70-110)
[2021-09-26 19:35] LABS: GLUCOMETER DEV NAME(LOC) ERT.5; GLUCOSE,POINT OF CARE 237 MG/DL (70-110)
[2021-09-26] MEDS ORDERED: INSULIN GLARGINE,HUM.REC.ANLOG 100 UNITS/ML SQ ONE (21:00)
[2021-09-26 21:08] LABS: GLUCOMETER DEV NAME(LOC) ERT.5; GLUCOSE,POINT OF CARE 242 MG/DL (70-110)
[2021-09-26 21:10] VITALS: BP 139/65
== END 2021-09-26 21:26 | disposition home or self-care (01) ==
LOC: EMS 16:41
DX: R13.10 Dysphagia, unspecified (principal); E11.65 Type 2 diabetes mellitus with hyperglycemia; E71.32 Disorders of ketone metabolism; F17.210 Nicotine dependence, cigarettes, uncomplicated; J44.9 Chronic obstructive pulmonary disease, unspecified; Z79.4 Long term (current) use of insulin; Z79.84 Long term (current) use of oral hypoglycemic drugs
CPT/HCPCS: 36415; 80053; 82009; 82962; 84484; 85025; 96361; 96374; 99283; J1815 ×2; J7030

== ENCOUNTER 2021-11-21 20:36 | Inpatient (IN) | payer MEDICARE, MEDICAID ==
[~2021-11-21] VITALS: Ht 162.6 cm; Wt 69.1 kg
[2021-11-21] MEDS ORDERED: NALOXONE HCL 1 MG/ML SYRINGE IM ONE (21:15)
[2021-11-21 21:30] LABS: BASOPHILS % (AUTO) 0.4 % (0.0-2.0); EOSINOPHILS % (AUTO) 3.6 % (1.0-6.0); HEMATOCRIT 32.8 % (36-46); HEMOGLOBIN 11.1 g/dL (12.0-16.0); LYMPHOCYTES # (AUTO) 1.1 K/uL (1.0-4.8); LYMPHOCYTES % (AUTO) 16.8 % (22.0-44.0); MEAN CORPUSCULAR HEMOGLOBIN 31.2 pg (26.0-34.0); MEAN CORPUSCULAR HGB CONC 33.9 G/dL (31.0-37.0); MEAN CORPUSCULAR VOLUME 92 fL (80-100); MONOCYTES # (AUTO) 0.4 K/uL (0.1-1.0); MONOCYTES % (AUTO) 5.8 % (2.0-9.0); NEUTROPHILS % (AUTO) 73.4 % (40.0-70.0); PLATELET COUNT (AUTO) 302 K/uL (150-450); RED BLOOD CELL COUNT(AUTO) 3.56 MIL/uL (4.00-5.20); RED CELL DISTRIBUTION WIDTH 13.7 % (11.5-14.5)
[2021-11-21 21:40] LABS: SALICYLATE 2.8 mg/dL (2.8-20.0)
[2021-11-21 21:41] LABS: ANION GAP 10 mmol/L (8-16); CALCIUM, TOTAL 9.2 mg/dL (8.8-10.5); CARBON DIOXIDE 23 mmol/L (22-29); CHLORIDE 103 mmol/L (98-107); CREATININE 1.16 mg/dL (0.60-1.30); GLOMERULAR FILTR. RATE CALC 47 mL/min (>60); GLUCOSE,RANDOM 135 mg/dL (70-110); POTASSIUM 3.9 mmol/L (3.5-5.1); SODIUM SERUM 136 mmol/L (136-145); UREA NITROGEN, BLOOD 27 mg/dL (7-18)
[2021-11-21 21:44] LABS: INR 0.9 (0.9-1.1); PROTHROMBIN TIME 9.8 SEC (9.4-11.6)
[2021-11-21 21:47] LABS: ALANINE AMINOTRANSFERASE 17 U/L (12-78); ALBUMIN 3.2 g/dL (3.4-5.0); ALKALINE PHOSPHATASE 131 U/L (46-116); ASPARTATE AMINOTRANSFERASE 9 U/L (15-37); BILIRUBIN,TOTAL 0.2 mg/dL (0.1-1.0); TOTAL PROTEIN, SERUM 8.3 g/dL (6.4-8.2)
[2021-11-21 21:49] LABS: AMMONIA 10 umol/L (11-32)
[2021-11-21 21:50] LABS: ACETAMINOPHEN < 2 mcg/mL (10-30)
[2021-11-21 23:03] LABS: APPEARANCE,URINE CLEAR (CLEAR); BILIRUBIN,URINE NEGATIVE (NEGATIVE); GLUCOSE, URINE (UA) 100 mg/dL (NEGATIVE); KETONES,URINE NEGATIVE (NEGATIVE); LEUKOCYTE ESTERASE ,URINE NEGATIVE (NEGATIVE); NITRATE,URINE NEGATIVE (NEGATIVE); OCCULT BLOOD,URINE NEGATIVE (NEGATIVE); PH,URINE 6.5 (5.0-8.0); PROTEIN,URINE TRACE (NEGATIVE); UROBILINOGEN,URINE 0.2 mg/dL (<=1.0)
[2021-11-21 23:07] LABS: AMPHET/METH SCREEN,URINE NEGATIVE (NEGATIVE); BARBITURATE SCREEN, URINE NEGATIVE (NEGATIVE); BENZODIAZEPINES SCREEN,URINE NEGATIVE (NEGATIVE); CANNABINOID SCREEN,URINE NEGATIVE (NEGATIVE); COCAINE SCREEN,URINE NEGATIVE (NEGATIVE); METHADONE SCREEN, URINE NEGATIVE (NEGATIVE); OPIATE SCREEN,URINE NEGATIVE (NEGATIVE)
[2021-11-21 23:09] LABS: PHENCYCLIDINE SCREEN,URINE NEGATIVE (NEGATIVE)
[2021-11-21 23:22] LABS: BACTERIA,URINE None Seen /HPF (None Seen); RBC,URINE 0-2 /HPF (0-2); WBC,URINE 0-2 /HPF (0-5)
[2021-11-22] MEDS ORDERED: SODIUM CHLORIDE 0.9% 1,000 ML IV ONE (01:45)
[2021-11-22] MEDS ORDERED: ONDANSETRON HCL 4 MG/2 ML VIAL IVP PRN ×2 (02:45→14:15)
[2021-11-22] MEDS ORDERED: 0.9% SODIUM CHLORIDE 10 ML SYRINGE IVP PRN (02:45)
[2021-11-22] MEDS ORDERED: ACETAMINOPHEN 325 MG TABLET PO PRN (02:45)
[2021-11-22 06:26] LABS: GLUCOSE,POINT OF CARE 71 MG/DL (70-110)
[2021-11-22 07:00] LABS: COVID AG,FIA SOURCE NASAL SWAB
[2021-11-22] MEDS ORDERED: DEXTROSE 50%-WATER 25 GM/50 ML SYRINGE IVP ONE ×2 (08:00→18:15)
[2021-11-22 08:16] LABS: GLUCOSE,POINT OF CARE 55 MG/DL (70-110)
[2021-11-22] MEDS ORDERED: DEXTROSE 5%-0.45% SODIUM CHL 1,000 ML IV SCH (08:45)
[2021-11-22 12:07] VITALS: BP 166/98
[2021-11-22 13:36] LABS: GLUCOMETER DEV NAME(LOC) 6N.1; GLUCOSE,POINT OF CARE 104 MG/DL (70-110)
[2021-11-22] MEDS ORDERED: MORPHINE SULFATE 2 MG/ML SYRINGE IVP PRN (14:15)
[2021-11-22] MEDS ORDERED: HYDROCODONE/ACETAMINOPHEN 5-325 MG TABLET PO PRN (14:15)
[2021-11-22] MEDS ORDERED: ZOLPIDEM TARTRATE 5 MG TABLET PO PRN (14:15)
[2021-11-22] MEDS ORDERED: MAGNESIUM HYDROXIDE SUSPENSION 30 ML UDCUP PO PRN (14:15)
[2021-11-22] MEDS ORDERED: BISACODYL 10 MG RECTAL RECTAL SUPPOSITORY PR PRN (14:15)
[2021-11-22 16:15] VITALS: BP 138/82
[2021-11-22] MEDS: HEPARIN SODIUM,PORCINE 5,000 UNITS/ML VIAL SQ SCH (17:16)
[2021-11-22 19:41] LABS: GLUCOMETER DEV NAME(LOC) 6N.2; GLUCOSE,POINT OF CARE 53 MG/DL (70-110)
[2021-11-22 19:41] LABS: GLUCOMETER DEV NAME(LOC) 6N.2; GLUCOSE,POINT OF CARE 50 MG/DL (70-110)
[2021-11-22 19:41] LABS: GLUCOMETER DEV NAME(LOC) 6N.2; GLUCOSE,POINT OF CARE 61 MG/DL (70-110)
[2021-11-22] MEDS: SODIUM CHLORIDE 77 MEQ in DEXTROSE 10%-WATER 1,000 ML IV SCH (19:58)
[2021-11-22] MEDS: DOCUSATE SODIUM 100 MG CAPSULE PO SCH (19:58)
[2021-11-22 21:00] VITALS: BP 181/83
[2021-11-22] MEDS ORDERED: AmLODIPine BESYLATE 5 MG TABLET PO ONE (21:30)
[2021-11-22] MEDS: ACETAMINOPHEN 325 MG TABLET PO PRN (22:28)
[2021-11-23 00:56] LABS: GLUCOMETER DEV NAME(LOC) 6N.2; GLUCOSE,POINT OF CARE 98 MG/DL (70-110)
[2021-11-23 04:37] VITALS: BP 151/70
[2021-11-23 05:01] LABS: GLUCOMETER DEV NAME(LOC) 6N.2; GLUCOSE,POINT OF CARE 209 MG/DL (70-110)
[2021-11-23 08:02] VITALS: BP 142/76
[2021-11-23 09:44] LABS: BASOPHILS % (AUTO) 0.3 % (0.0-2.0); EOSINOPHILS % (AUTO) 1.2 % (1.0-6.0); HEMATOCRIT 33.2 % (36-46); HEMOGLOBIN 11.4 g/dL (12.0-16.0); LYMPHOCYTES # (AUTO) 0.7 K/uL (1.0-4.8); LYMPHOCYTES % (AUTO) 12.8 % (22.0-44.0); MEAN CORPUSCULAR HEMOGLOBIN 31.8 pg (26.0-34.0); MEAN CORPUSCULAR HGB CONC 34.3 G/dL (31.0-37.0); MEAN CORPUSCULAR VOLUME 93 fL (80-100); MONOCYTES # (AUTO) 0.3 K/uL (0.1-1.0); MONOCYTES % (AUTO) 5.1 % (2.0-9.0); NEUTROPHILS # (AUTO) 4.2 K/uL (1.8-7.7); NEUTROPHILS % (AUTO) 80.6 % (40.0-70.0); PLATELET COUNT (AUTO) 373 K/uL (150-450); RED BLOOD CELL COUNT(AUTO) 3.59 MIL/uL (4.00-5.20); RED CELL DISTRIBUTION WIDTH 13.4 % (11.5-14.5)
[2021-11-23 09:52] LABS: ALBUMIN 2.9 g/dL (3.4-5.0); BILIRUBIN,TOTAL 0.2 mg/dL (0.1-1.0); CALCIUM, TOTAL 8.6 mg/dL (8.8-10.5); CREATININE 0.94 mg/dL (0.60-1.30); POTASSIUM 3.4 mmol/L (3.5-5.1); TOTAL PROTEIN, SERUM 7.9 g/dL (6.4-8.2)
[2021-11-23] MEDS: AmLODIPine BESYLATE 5 MG TABLET PO SCH (10:22)
[2021-11-23] MEDS: PANTOPRAZOLE SODIUM 40 MG DR TABLET PO SCH (10:22)
[2021-11-23] MEDS: HEPARIN SODIUM,PORCINE 5,000 UNITS/ML VIAL SQ SCH ×3 (10:23→17:22)
[2021-11-23] MEDS: DOCUSATE SODIUM 100 MG CAPSULE PO SCH ×2 (10:23→21:04)
[2021-11-23 15:25] VITALS: BP 139/79
[2021-11-23 19:20] VITALS: BP 158/74
[2021-11-23 19:46] LABS: GLUCOMETER DEV NAME(LOC) 6N.1; GLUCOSE,POINT OF CARE 127 MG/DL (70-110)
[2021-11-23] MEDS: ACETAMINOPHEN 325 MG TABLET PO PRN (20:51)
[2021-11-24] MEDS: HEPARIN SODIUM,PORCINE 5,000 UNITS/ML VIAL SQ SCH ×2 (00:06→12:59)
[2021-11-24] MEDS: SODIUM CHLORIDE 77 MEQ in DEXTROSE 10%-WATER 1,000 ML IV SCH ×2 (00:43→00:49)
[2021-11-24 06:17] VITALS: BP 156/75
[2021-11-24 06:56] LABS: GLUCOMETER DEV NAME(LOC) 6N.1; GLUCOSE,POINT OF CARE 141 MG/DL (70-110)
[2021-11-24 07:20] LABS: ANION GAP 11 mmol/L (8-16); CALCIUM, TOTAL 9.1 mg/dL (8.8-10.5); CARBON DIOXIDE 25 mmol/L (22-29); CHLORIDE 102 mmol/L (98-107); CREATININE 0.85 mg/dL (0.60-1.30); GLOMERULAR FILTR. RATE CALC > 60 mL/min (>60); GLUCOSE,RANDOM 218 mg/dL (70-110); POTASSIUM 3.5 mmol/L (3.5-5.1); SODIUM SERUM 138 mmol/L (136-145); UREA NITROGEN, BLOOD 11 mg/dL (7-18)
[2021-11-24 07:37] LABS: BASOPHILS % (AUTO) 0.5 % (0.0-2.0); EOSINOPHILS % (AUTO) 3.3 % (1.0-6.0); HEMATOCRIT 38.6 % (36-46); HEMOGLOBIN 13.5 g/dL (12.0-16.0); LYMPHOCYTES # (AUTO) 1.4 K/uL (1.0-4.8); LYMPHOCYTES % (AUTO) 19.9 % (22.0-44.0); MEAN CORPUSCULAR HEMOGLOBIN 32.1 pg (26.0-34.0); MEAN CORPUSCULAR HGB CONC 35.1 G/dL (31.0-37.0); MEAN CORPUSCULAR VOLUME 92 fL (80-100); MONOCYTES # (AUTO) 0.3 K/uL (0.1-1.0); MONOCYTES % (AUTO) 4.6 % (2.0-9.0); NEUTROPHILS % (AUTO) 71.7 % (40.0-70.0); PLATELET COUNT (AUTO) 324 K/uL (150-450); RED BLOOD CELL COUNT(AUTO) 4.22 MIL/uL (4.00-5.20); RED CELL DISTRIBUTION WIDTH 13.4 % (11.5-14.5)
[2021-11-24 08:19] VITALS: BP 145/69
[2021-11-24 12:27] VITALS: BP 142/77
[2021-11-24] MEDS ORDERED: AMLO-257 PO (12:46)
[2021-11-24] MEDS ORDERED: INSLAN SQ (12:46)
[2021-11-24] MEDS: DOCUSATE SODIUM 100 MG CAPSULE PO SCH (12:59)
[2021-11-24] MEDS: AmLODIPine BESYLATE 5 MG TABLET PO SCH (12:59)
[2021-11-24] MEDS: PANTOPRAZOLE SODIUM 40 MG DR TABLET PO SCH (12:59)
== END 2021-11-24 14:45 | disposition home or self-care (01) | DRG 637 ==
LOC: EMS 20:39 → 6N 11-22 06:30 → 6S 11-22 09:06 → 6N 11-22 23:46
PROVIDERS: ADMIT Internal Medicine; ATTEND Internal Medicine
DX: E11.649 Type 2 diabetes mellitus with hypoglycemia without coma (principal); G93.41 Metabolic encephalopathy; T38.3X5A Adverse effect of insulin and oral hypoglycemic [antidiabetic] drugs, initial encounter; K21.9 Gastro-esophageal reflux disease without esophagitis; E78.5 Hyperlipidemia, unspecified; F43.10 Post-traumatic stress disorder, unspecified; J44.9 Chronic obstructive pulmonary disease, unspecified; F17.210 Nicotine dependence, cigarettes, uncomplicated; Z20.822 Contact with and (suspected) exposure to COVID-19; Z79.84 Long term (current) use of oral hypoglycemic drugs; Z79.899 Other long term (current) drug therapy; Y92.89 Other specified places as the place of occurrence of the external cause
CPT/HCPCS: 51702; 70450; 71045; 80048; 80053; 81001; 81003; 82140; 82962; 83036; 83605; 84484; 85025; 85610; 85730; 87040; 92610; 93005; 97116; 97161; 99285; G0480; G0481; J1644; J7030; J7131; 36415-L1; 36415-TC